=== PATIENT | female | born 1990 | race African-American/Black ===

== ENCOUNTER 2019-07-27 15:00 | Emergency (ER) | payer OTHER | END 2019-07-27 18:29 | disposition home or self-care (01) | LOC: ERS 15:00 | DX: J06.9 Acute upper respiratory infection, unspecified (principal); J45.909 Unspecified asthma, uncomplicated; F41.9 Anxiety disorder, unspecified; F17.210 Nicotine dependence, cigarettes, uncomplicated; Z79.51 Long term (current) use of inhaled steroids | CPT/HCPCS: 99283 ==

== ENCOUNTER 2020-02-02 13:44 | Emergency (ER) | payer OTHER ==
--- NOTE | 2020-02-02 15:23 | RAD ---
RIGHT FOOT 3 VIEWS: Date: 02/02/2020 HISTORY: Injury, right foot pain. FINDINGS/IMPRESSION: No fracture, dislocation, or bony destruction seen. POS: [facility]
== END 2020-02-02 15:38 | disposition home or self-care (01) ==
LOC: ERS 13:44
DX: S91.311A Laceration without foreign body, right foot, initial encounter (principal); J45.909 Unspecified asthma, uncomplicated; F41.9 Anxiety disorder, unspecified; F17.210 Nicotine dependence, cigarettes, uncomplicated; Z79.51 Long term (current) use of inhaled steroids; W20.8XXA Other cause of strike by thrown, projected or falling object, initial encounter
CPT/HCPCS: 12001